=== PATIENT | female | born 1970 | race Caucasian/White ===

== ENCOUNTER → 2021-01-23 09:05 | Outpatient (BNVA) | payer OTHER, SELFPAY | PROVIDERS: PCP Physician Assistant Medical; Visit Provider Internal Medicine Pulmonary Disease ==

== ENCOUNTER 2021-04-11 16:01 | Outpatient (REF) | payer OTHER, SELFPAY ==
--- NOTE | 2021-04-11 17:36 | PFT_ITS ---
Forced vital capacity and FEV1 as well as CTS79-31 are moderately reduced. MVV is markedly reduced. Post bronchodilator therapy, there is no significant improvement except slight increase in NTO72-90. Total lung capacity is slightly reduced. Residual volume is normal. Diffusion capacity normal. CONCLUSION: Mild restrictive pulmonary disorder. Cetc-lh-wpuxyach degree of obstructive airway disorder with very minimal response to bronchodilator therapy. Clinical correlation is recommended. MD LISE Danielle/RK / [id number]
== END 2021-04-11 16:02 | disposition home or self-care (01) ==
LOC: HO.RESP 16:01
PROVIDERS: Visit Provider Internal Medicine Pulmonary Disease
DX: J45.909 Unspecified asthma, uncomplicated (principal)
CPT/HCPCS: 94060; 94727; 94729

== ENCOUNTER → 2021-07-05 15:24 | Outpatient (BNVA) | payer OTHER, SELFPAY | PROVIDERS: PCP Internal Medicine; Visit Provider Internal Medicine Pulmonary Disease ==